=== PATIENT | female | born 1990 | race Caucasian/White ===

== ENCOUNTER 2017-11-29 00:15 | Emergency (ER) | payer MEDICAID ==
[~2017-11-29] VITALS: Ht 172.7 cm; Wt 117.9 kg
[2017-11-29 00:35] VITALS: BP 141/90
[2017-11-29 01:40] VITALS: BP 145/86
== END 2017-11-29 01:41 | disposition home or self-care (01) ==
LOC: MED 00:15
DX: R09.81 Nasal congestion (principal); R04.0 Epistaxis
CPT/HCPCS: 99283